=== PATIENT | male | born 1995 | race Two or more races ===

== ENCOUNTER 2023-12-15 23:11 | Inpatient (IN) | payer OTHER ==
[2023-12-16 00:12] VITALS: BMI 23.1
[2023-12-16] MEDS ORDERED: DICYCLOMINE HCL 10 MG CAPSULE PO PRN (00:24)
[2023-12-16] MEDS ORDERED: DOCUSATE SODIUM 100 MG CAPSULE (FP) PO PRN (00:24)
[2023-12-16] MEDS ORDERED: guaiFENesin 600 MG TABLET.ER (FP) PO PRN (00:24)
[2023-12-16] MEDS ORDERED: NICOTINE POLACRILEX 2 MG LOZENGE BC PRN (00:24)
[2023-12-16] MEDS ORDERED: NALOXONE (NARCAN) HCL 4 MG/0.1 ML SPRAY NS PRN (00:24)
[2023-12-16] MEDS ORDERED: BENZOCAINE/MENTHOL (CHLORASEPTIC ) LOZENGE MM PRN (00:24)
[2023-12-16] MEDS ORDERED: LOPERAMIDE HCL 2 MG CAPSULE PO PRN (00:24)
[2023-12-16] MEDS ORDERED: MAG HYDROX/AL HYDROX/SIMETH 30 ML UNIT-DOSE CUP PO PRN (00:24)
[2023-12-16] MEDS ORDERED: MAGNESIUM HYDROX 2400MG/30ML ORAL SUSPENSION 30 ML CUP PO PRN (00:24)
[2023-12-16] MEDS ORDERED: P-EPHED 60MG/TRIPROLIDI 2.5MG TABLET PO PRN (00:24)
[2023-12-16] MEDS ORDERED: POLYETHYLENE GLYCOL (HEALTHYLAX) 3350 17 GM PACKET PO PRN (00:24)
[2023-12-16] MEDS ORDERED: BISMUTH SUBSALICYLATE 524 MG/30 ML PO PRN (00:24)
[2023-12-16] MEDS ORDERED: BENZONATATE 200 MG CAPSULE PO PRN (00:24)
[2023-12-16] MEDS ORDERED: ONDANSETRON *ODT* 4 MG TABLET SL PRN (00:24)
[2023-12-16] MEDS ORDERED: IBUPROFEN 400 MG TABLET (FP) PO PRN (00:24)
[2023-12-16] MEDS ORDERED: NALOXONE HCL 0.4 MG/ML VIAL IM PRN (00:24)
[2023-12-16] MEDS ORDERED: HYDROCORTISONE 0.5% TOPICAL OINTMENT TUBE TP PRN ×2 (00:26→12:18)
[2023-12-16] MEDS ORDERED: MELATONIN 5 MG TABLETS ONE (01:25)
[2023-12-16] MEDS ORDERED: METOPROLOL TARTRATE 25 MG TABLET (FP) ONE (01:25)
[2023-12-16] MEDS: METOPROLOL TARTRATE 25 MG TABLET (FP) PO ONE (01:29)
[2023-12-16] MEDS: diphenhydrAMINE HCL 25 MG CAPSULE (FP) PO ONE (01:30)
[2023-12-16] MEDS: MELATONIN 5 MG TABLETS PO ONE (01:30)
[2023-12-16] MEDS ORDERED: hydrOXYzine PAMOATE 25 MG CAPSULE (FP) PO ONE (06:27)
[2023-12-16] MEDS ORDERED: IBUPROFEN 600 MG TABLET (FP) PO ONE (06:28)
[2023-12-16] MEDS: hydrOXYzine PAMOATE 25 MG CAPSULE (FP) PO PRN (06:31)
[2023-12-16] MEDS: IBUPROFEN 600 MG TABLET (FP) PO PRN (06:31)
[2023-12-16] MEDS: BACITRACIN ZINC 15 GM TUBE TOPICAL OINTMENT TP SCH (10:47)
[2023-12-16] MEDS: methylPREDNISolone 4 MG TABLET PO SCH ×2 (10:48→12:13)
[2023-12-16] MEDS: PRENATAL VITAMINS W/ FOLIC ACID TABLET (FP) PO SCH (10:48)
[2023-12-16] MEDS: NICOTINE POLACRILEX 2 MG GUM BUC PRN (18:03)
[2023-12-16] MEDS: methylPREDNISolone 4 MG TABLET PO ONE (20:20)
[2023-12-16] MEDS: HYDROCORTISONE 0.5% TOPICAL CREAM 30 GM TUBE TP PRN (20:22)
[2023-12-16] MEDS: THIAMINE 100 MG TABLET PO SCH (22:18)
[2023-12-16] MEDS: MELATONIN 5 MG TABLETS PO SCH (22:18)
[2023-12-16] MEDS: METHOCARBAMOL 500 MG TABLET PO PRN (22:18)
[2023-12-16] MEDS: ACETAMINOPHEN 325 MG TABLET (FP) PO PRN (22:19)
[2023-12-17 09:36] VITALS: RESP 16
[2023-12-17] MEDS: BACITRACIN 0.9 GM PACKET TP SCH (12:51)
[2023-12-17 13:31] LABS: HEMATOCRIT 34.4 % (35.4-49); HEMOGLOBIN 11.6 GM/dL (11.7-16.9); MCHC 33.7 g/dl (32.0-35.9); MEAN CELL VOLUME 89.1 fl (80-96); MEAN PLT VOLUME 7.1 fl (7.5-11.1); PLATELET COUNT 462 10^3/uL (134-434); RBC 3.86 M/mm3 (4.00-5.60); RDW 13.4 % (11.9-15.9); WHITE BLOOD COUNT 9.1 K/mm3 (4.0-10.0)
[2023-12-17 13:33] LABS: ALBUMIN 3.4 g/dl (3.4-5.0); BLOOD UREA NITROGEN 7.6 mg/dL (7-18); CALCIUM 8.8 mg/dL (8.5-10.1)
[2023-12-17 13:36] LABS: CREATININE 0.6 mg/dL (0.55-1.3)
[2023-12-17 13:38] LABS: BILIRUBIN,TOTAL 1.1 mg/dL (0.2-1); TOT PROT 6.6 g/dl (6.4-8.2)
[2023-12-17 16:56] VITALS: BP 144/88; PULSE 88; TEMP 98.4
== END 2023-12-17 19:01 | disposition left against medical advice (07) | DRG 770 ==
LOC: YASAS 23:11 → Y6N 12-16 08:19 → Y3N 12-16 08:25
PROVIDERS: ADMIT Allergy & Immunology; ATTEND Surgery
PROC: HZ2ZZZZ Detoxification Services for Substance Abuse Treatment (ICD-10-PCS; principal; 2023-12-16)
DX: F11.20 Opioid dependence, uncomplicated (principal); F14.10 Cocaine abuse, uncomplicated; F12.20 Cannabis dependence, uncomplicated; F17.290 Nicotine dependence, other tobacco product, uncomplicated; F41.9 Anxiety disorder, unspecified; F90.9 Attention-deficit hyperactivity disorder, unspecified type; L30.9 Dermatitis, unspecified
CPT/HCPCS: 36415; 80053; 80305; 85027; 86780; 93005; 93010

== ENCOUNTER 2025-04-01 11:30 | Inpatient (IN) | payer OTHER ==
[2025-04-01 12:13] VITALS: BMI 25.4
[2025-04-01] MEDS ORDERED: POLYETHYLENE GLYCOL (HEALTHYLAX) 3350 17 GM PACKET PO PRN (13:02)
[2025-04-01] MEDS ORDERED: guaiFENesin 600 MG TABLET.ER (FP) PO PRN (13:02)
[2025-04-01] MEDS ORDERED: MAG HYDROX/AL HYDROX/SIMETH 30 ML UNIT-DOSE CUP PO PRN (13:02)
[2025-04-01] MEDS ORDERED: IBUPROFEN 400 MG TABLET (FP) PO PRN (13:02)
[2025-04-01] MEDS ORDERED: MAGNESIUM HYDROX 2400MG/30ML ORAL SUSPENSION 30 ML CUP PO PRN (13:02)
[2025-04-01] MEDS ORDERED: NALOXONE (NARCAN) HCL 4 MG/0.1 ML SPRAY NS PRN (13:02)
[2025-04-01] MEDS ORDERED: ACETAMINOPHEN 325 MG TABLET (FP) PO PRN (13:02)
[2025-04-01] MEDS ORDERED: ONDANSETRON *ODT* 4 MG TABLET SL PRN (13:02)
[2025-04-01] MEDS ORDERED: BENZOCAINE/MENTHOL (CHLORASEPTIC ) LOZENGE MM PRN (13:02)
[2025-04-01] MEDS ORDERED: BENZONATATE 200 MG CAPSULE PO PRN (13:02)
[2025-04-01] MEDS: NICOTINE POLACRILEX 2 MG GUM BUC PRN (14:43)
[2025-04-01] MEDS ORDERED: HYDROCORTISONE 0.5% TOPICAL OINTMENT TUBE TP PRN (15:13)
[2025-04-01] MEDS: ALBUTEROL SO4 HFA INHALER IH PRN (15:25)
[2025-04-01] MEDS ORDERED: MINERAL OIL/PETROLAT/WATER TOPICAL CREAM 454 GM JAR TP PRN (17:26)
[2025-04-01] MEDS: METHOCARBAMOL 500 MG TABLET PO PRN (17:48)
[2025-04-01] MEDS: HYDROCORTISONE 0.5% TOPICAL CREAM 30 GM TUBE TP PRN (20:55)
[2025-04-01] MEDS: TRIAMCINOLONE ACET 0.1% CREAM 15 GM TUBE TP SCH (22:17)
[2025-04-01] MEDS: MELATONIN 5 MG TABLETS PO SCH (22:18)
[2025-04-01] MEDS: THIAMINE 100 MG TABLET PO SCH (22:18)
[2025-04-01] MEDS: hydrOXYzine PAMOATE 25 MG CAPSULE (FP) PO PRN (22:19)
[2025-04-02] MEDS: PRENATAL VITAMINS W/ FOLIC ACID TABLET (FP) PO SCH (10:33)
[2025-04-02] MEDS: NICOTINE 21 MG/24 HOURS TOPICAL PATCH TD SCH (10:33)
[2025-04-02 11:34] LABS: MCHC 32.3 g/dl (32.3-36.5); MEAN CELL VOLUME 87.2 fl (79.0-92.2); MEAN PLT VOLUME 10.0 fl (9.4-12.4); RDW 13.0 % (12.0-15.6)
[2025-04-02 12:02] LABS: GLUCOSE,RANDOM 122.0 mg/dL (74-106); TOT PROT 7.6 g/dl (6.4-8.2)
[2025-04-02 12:03] LABS: CO2 23.0 mmol/L (21-32)
[2025-04-02 12:05] LABS: ALK PHOS 52.0 U/L (40-150)
[2025-04-02 12:07] LABS: SGOT/AST 49.0 U/L (5-34); SGPT/ALT 58.0 U/L (0-55)
[2025-04-02 12:08] LABS: CREATININE 0.56 mg/dL (0.55-1.3)
[2025-04-02] MEDS: SUVOREXANT 10 MG TABLET PO PRN (22:13)
[2025-04-02] MEDS: ALBUTEROL SO4 HFA INHALER IH PRN (23:25)
[2025-04-03] MEDS: BISMUTH SUBSALICYLATE 524 MG/30 ML PO PRN (06:03)
[2025-04-03] MEDS: DICYCLOMINE HCL 10 MG CAPSULE PO PRN (22:17)
[2025-04-03] MEDS: LOPERAMIDE HCL 2 MG CAPSULE PO PRN (22:17)
[2025-04-04] MEDS: GABAPENTIN 100 MG CAPSULE PO SCH (10:40)
[2025-04-04] MEDS: IBUPROFEN 600 MG TABLET (FP) PO PRN (17:54)
[2025-04-04] MEDS: QUEtiapine FUMARATE 100 MG TABLET (FP) PO SCH (22:09)
[2025-04-05 11:49] LABS: MCHC 32.7 g/dl (32.3-36.5); MEAN CELL VOLUME 88.0 fl (79.0-92.2); MEAN PLT VOLUME 9.5 fl (9.4-12.4); RDW 13.1 % (12.0-15.6)
[2025-04-06] MEDS ORDERED: SIMETHICONE 80 MG TAB.CHEW (FP) PO PRN (12:20)
[2025-04-07 06:19] VITALS: BP 124/73; PULSE 85; RESP 18; TEMP 97.6
== END 2025-04-07 09:03 | disposition home or self-care (01) | DRG 773 ==
LOC: SUATTDRO 11:30 → YASAS 11:30 → Y3N 13:49
PROVIDERS: ADMIT Family Medicine; ATTEND Counselor Addiction (Substance Use Disorder)
PROC: HZ2ZZZZ Detoxification Services for Substance Abuse Treatment (ICD-10-PCS; principal; 2025-04-01)
DX: F11.23 Opioid dependence with withdrawal (principal); F10.230 Alcohol dependence with withdrawal, uncomplicated; F90.9 Attention-deficit hyperactivity disorder, unspecified type; F41.9 Anxiety disorder, unspecified; F17.210 Nicotine dependence, cigarettes, uncomplicated; L30.9 Dermatitis, unspecified; G47.00 Insomnia, unspecified
CPT/HCPCS: 36415; 80053; 80305; 80307; 85027; 86780; 93005; 93010